=== PATIENT | male | born 1990 | race Caucasian/White ===

== ENCOUNTER 2020-05-16 18:09 | Emergency (ER) | payer MEDICAID, SELFPAY ==
[~2020-05-16] VITALS: Ht 175.3 cm; Wt 72.6 kg
[2020-05-16 18:11] VITALS: Ht 175.3 cm; Wt 72.6 kg
[2020-05-16 19:07] VITALS: BP 79/48
[2020-05-16 19:19] LABS: CALCIUM 8.5 mg/dL (8.5-10.1); CARBON DIOXIDE 20.5 mmol/L (21-32); CHLORIDE SERUM 93 mmol/L (98-107); GFR1 42 mL/min; GLUCOSE SERUM 170 mg/dL (74-106); POTASSIUM SERUM 3.5 mmol/L (3.5-5.1); SODIUM SERUM 130 mmol/L (136-145)
[2020-05-16 19:29] LABS: BASOPHIL % 0.2 % (0-2); PLATELET COUNT 204 x10^3mcL (130-400); RED CELL DISTRIBUTION WIDTH 13.4 % (11.5-14.5)
[2020-05-16 19:32] LABS: ALKALINE PHOSPHATASE 78 U/L (46-116); ALT/SGPT 75 U/L (16-63); AST/SGOT 337 U/L (15-37); BILIRUBIN TOTAL 0.35 mg/dL (0.20-1.00); LIPASE 46 IU/L (73-393); TOTAL PROTEIN, SERUM 7.8 g/dL (6.4-8.2)
[2020-05-16 19:38] LABS: ALBUMIN 2.8 g/dL (3.4-5.0); LACTIC DEHYDROGENASE (LDH) 1053 U/L (100-190)
[2020-05-16 20:26] LABS: C REACTIVE PROTEIN 26.3 mg/dL (<=0.9)
== END 2020-05-17 00:34 | disposition expired ==
LOC: ED 18:09
PROVIDERS: Emergency Medicine
DX: I46.9 Cardiac arrest, cause unspecified (principal); R19.7 Diarrhea, unspecified; N19 Unspecified kidney failure; R79.89 Other specified abnormal findings of blood chemistry; Z20.828 Contact with and (suspected) exposure to other viral communicable diseases
CPT/HCPCS: 36600; 83880; 85378; 87804; J2060; J2405; J3490; Q0092